=== PATIENT | male | born 1975 | race Caucasian/White ===

== ENCOUNTER 2017-03-21 07:42 | Emergency (ER) | payer OTHER ==
[2017-03-21 08:00] VITALS: BP 123/86
--- NOTE | 2017-03-21 08:32 | UC ---
Shoulder Pain HPI - HPI Summary HPI Summary: Left shoulder pain for the past two days. No trauma. This is similar to prior episode that was helped with meds and PT. She does not have orthopedic doctor. 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 It hurts more to raise arm and to sleep on that arm. - History of Current Complaint Chief Complaint: UCUpperExtremity Stated Complaint: LEFT SHOULDER PAIN Time Seen by Provider: 03/21/17 08:01 Hx Obtained From: Patient Onset/Duration: Gradual Onset, Lasting Days Timing: Constant Severity Initially: Moderate Severity Currently: Moderate Character: Sharp, Aching Aggravating Factor(s): Movement, Lifting, Abduction Alleviating Factor(s): Rest Associated Signs And Symptoms: Positive: Negative. Negative: Swelling, Redness , Bruising, Fever, Weakness, Numbness/Tingling - Allergies/Home Medications Allergies/Adverse Reactions: Allergies Allergy/AdvReac Type Severity Reaction Status Date / Time No Known Allergies Allergy Verified 03/21/17 07:50 Home Medications: Home Medications Aspirin TAB* [Aspirin 325 MG TAB*] 650 mg PO Q6H PRN 03/21/17 [History Confirmed 03/21/17] Ibuprofen TAB* [Advil TAB*] 600 mg PO Q6H PRN 03/21/17 [History Confirmed ] PMH/Surg Hx/FS Hx/Imm Hx Previously Healthy: No - prior left shoulder calcific tendonitis. - Surgical History Surgical History: Yes Surgery Procedure, Year, and Place: TONSILECTOMY W/[facility]; VASTECTOMY; Left knee miniscus repair - Family History Known Family History: Positive: None - Social History Occupation: Employed Full-time Alcohol Use: None Substance Use Type: None Smoking Status (MU): Never Smoked Tobacco Review of Systems Musculoskeletal: Arthralgia All Other Systems Reviewed And Are Negative: Yes Physical Exam Triage Information Reviewed: Yes Appearance: Well-Appearing, No Pain Distress, Well-Nourished Vital Signs: Initial Vital Signs Temp 96.7 F 03/21/17 07:52 Pulse 66 03/21/17 07:52 Resp 16 03/21/17 07:52 BP 123/86 03/21/17 07:52 Pulse Ox 98 03/21/17 07:52 Vital Signs Reviewed: Yes Eyes: Positive: Conjunctiva Clear ENT: Positive: Normal ENT inspection Neck: Positive: Supple, Nontender, No Lymphadenopathy Respiratory: Positive: Lungs clear, Normal breath sounds, No respiratory distress, No accessory muscle use. Negative: Respiratory distress Cardiovascular: Positive: RRR, No Murmur, Pulses Normal, Brisk Capillary Refill Abdomen Description: Negative: Distended, Guarding Musculoskeletal Exam: Other Musculoskeletal: Positive: No Edema. Negative: ROM Intact Neurological: Positive: Alert, Muscle Tone Normal - He has pain with any movement of the shoulder. There is no pain or loss of strength with pronation or supination of the left arm. No neck tenderness and neg spurling., Fatigued Skin: Negative: rashes, breakdown Shoulder Course/Dx - Course Assessment/Plan: we discussed pt, rest, sling prn, naprosyn bid and tramadol only at night. He will f/u with ortho for possible injection and/or MRI. - Differential Dx/Diagnosis Provider Diagnoses: left shoulder pain. left shoulder tendonitis. Discharge - Discharge Plan Condition: Good Disposition: HOME Prescriptions: Naproxen TAB* [Naprosyn 250 mg TAB*] 500 mg PO BID #20 tab traMADol TAB* [Ultram*] 50 mg PO BEDTIME PRN #14 tab MDD 1 PRN Reason: Pain Patient Education Materials: Calcific Tendinitis (ED), Shoulder Pain (ED) Referrals: Matt Loco MD [Primary Care Provider] - Jordan Lindsey MD [Medical Doctor] -
== END 2017-03-21 08:39 | disposition home or self-care (01) ==
LOC: UCCORT 07:42
DX: M25.512 Pain in left shoulder (principal); M75.92 Shoulder lesion, unspecified, left shoulder; Z79.82 Long term (current) use of aspirin
CPT/HCPCS: 99213; G0463

== ENCOUNTER 2017-03-22 07:11 | Emergency (ER) | payer OTHER ==
--- NOTE | 2017-03-22 07:15 | UC ---
Upper Extremity HPI - HPI Summary HPI Summary: 41 year old male presents with left shoulder pain with no trauma. - History of Current Complaint Stated Complaint: SHOULDER PAIN Time Seen by Provider: 03/22/17 07:14 Hx Obtained From: Patient Onset/Duration: Sudden Onset Severity Initially: Moderate Severity Currently: Moderate Pain Scale Used: 0-10 Numeric - 5 - Allergies/Home Medications Allergies/Adverse Reactions: Allergies Allergy/AdvReac Type Severity Reaction Status Date / Time No Known Allergies Allergy Verified 03/22/17 07:19 PMH/Surg Hx/FS Hx/Imm Hx Previously Healthy: Yes - Surgical History Surgical History: Yes Surgery Procedure, Year, and Place: TONSILECTOMY W/[facility]; VASTECTOMY; Left knee miniscus repair - Family History Known Family History: Positive: None - Social History Alcohol Use: None Substance Use Type: None Smoking Status (MU): Never Smoked Tobacco Review of Systems Constitutional: Negative Skin: Negative Eyes: Negative ENT: Negative Respiratory: Negative Cardiovascular: Negative Gastrointestinal: Negative Genitourinary: Negative Motor: Negative Neurovascular: Negative Musculoskeletal: Other: - left shoulder pain Neurological: Negative Psychological: Negative All Other Systems Reviewed And Are Negative: Yes Physical Exam Triage Information Reviewed: Yes Vital Signs Reviewed: Yes Eye Exam: Normal ENT Exam: Normal Dental Exam: Normal Neck exam: Normal Neck: Positive: 1 Respiratory Exam: Normal Cardiovascular Exam: Normal Abdominal Exam: Normal Musculoskeletal: Positive: Other: - left shoulder pain Neurological Exam: Normal Psychological Exam: Normal Skin Exam: Normal Upper Extremity Course/Dx - Differential Dx/Diagnosis Provider Diagnoses: left shoulder calcific tendonitis Discharge - Discharge Plan Condition: Stable Disposition: HOME Prescriptions: Methocarbamol TAB* [Robaxin 500 MG TAB*] 500 mg PO TID PRN #30 tab PRN Reason: Spasms Methylprednisolone [Medrol Dosepak 4 MG*] 4 mg PO .SEE [employer]MUEL [employer]STRUCTION #21 tab Patient Education Materials: Adhesive Capsulitis (ED) Referrals: Matt Loco MD [Primary Care Provider] - Jordan Lindsey MD [Medical Doctor] - [facility] [place] Physical therapy,PT [Medical Doctor] -
[2017-03-22 07:28] VITALS: BP 133/80
[2017-03-22] MEDS ORDERED: predniSONE TAB* 20 MG PO ONE (07:30)
--- NOTE | 2017-03-22 08:04 | RAD ---
Indication: Left shoulder pain. 4 views of the left shoulder demonstrates no fracture. AC joint arthritis is noted. Diffuse mild increased density is noted along the supraspinatous tendon consistent with calcific tendinitis. When compared to previous exam of June 26, 2015 this appears to be progressive. IMPRESSION: Calcific tendinitis of the distal supraspinatous tendon. This appears to be progressive since June 26, 2015.
== END 2017-03-22 08:19 | disposition home or self-care (01) ==
LOC: UCCORT 07:11
DX: M75.32 Calcific tendinitis of left shoulder (principal)
CPT/HCPCS: 99212; G0463; J7512